=== PATIENT | male | born 2000 | race Caucasian/White ===

== ENCOUNTER 2019-02-09 16:03 | Emergency (ER) | payer OTHER ==
[2019-02-09 16:21] VITALS: BP 117/72
--- NOTE | 2019-02-09 17:21 | UC ---
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 - History Of Current Complaint Chief Complaint: UCLaceration Stated Complaint: finger LACERATION Time Seen by Provider: 02/09/19 17:04 Hx Obtained From: Patient Laceration Location: Finger - LEFT 4TH Mechanism Of Injury: Sharp Trauma Onset/Duration: Sudden Onset, Lasting Minutes, Still Present Severity: Moderate Pain Intensity: 5 Pain Scale Used: 0-10 Numeric Aggravating Factors: Movement Related History: Dominant Hand Right - Allergies/Home Medications Allergies/Adverse Reactions: Allergies Allergy/AdvReac Type Severity Reaction Status Date / Time No Known Allergies Allergy Verified 02/09/19 16:21 PMH/Surg Hx/FS Hx/Imm Hx Respiratory History: Asthma - Surgical History Surgical History: Yes Surgery Procedure, Year, and Place: MOLES REMOVED, ENDOSCOPY, COLONOSCOPY - Family History Known Family History: Positive: Cardiac Disease, Hypertension, Diabetes - Type I - brother - Social History Alcohol Use: None Substance Use Type: None Smoking Status (MU): Never Smoked Tobacco - Immunization History Most Recent Tetanus Shot: UNKNOWN Vaccination Up to Date: Yes Review of Systems All Other Systems Reviewed And Are Negative: Yes Constitutional: Positive: Negative Skin: Positive: Other - LACERATION Respiratory: Positive: Negative Cardiovascular: Positive: Negative Gastrointestinal: Positive: Negative Musculoskeletal: Positive: Negative Physical Exam Triage Information Reviewed: Yes Appearance: Well-Appearing, No Pain Distress, Well-Nourished Vital Signs: Initial Vital Signs Temp 97.4 F 02/09/19 16:17 Pulse 54 02/09/19 16:17 Resp 16 02/09/19 16:17 BP 117/72 02/09/19 16:17 Pulse Ox 98 02/09/19 16:17 Vital Signs Reviewed: Yes Eyes: Positive: Conjunctiva Clear ENT: Positive: Hearing grossly normal Neck: Positive: Supple Respiratory: Positive: No respiratory distress, No accessory muscle use Cardiovascular: Positive: Pulses Normal Abdomen Description: Positive: Soft Musculoskeletal: Positive: ROM Intact, No Edema Neurological: Positive: Alert Psychological: Positive: Age Appropriate Behavior Skin: Positive: Other - 1.5CM FLAP LACERATION VOLAR SURFACE LEFT 4TH FINGER OVERLYING DIP JOINT. Negative: Rashes Laceration Repair - Laceration Repair 1 Description: Irregular - FLAP Laceration Size After Repair: Length (cm) - 1.5CM, Width (mm) - 0MM, Depth (mm) - 3MM Modified For Repair: No Type Injection: Local Anesthesia Used: 1.0% Lido Irrigation With Pressure Irrigation Device: Yes Closure Material: Sutures - 4 SIMPLE INTERRUPTED Closure Method: Single Layer Suture Of: Skin Suture Type: Prolene - 5-0 Diagnostics - Radiology LEFT 4TH FINGER XRAYS Radiology Interpretation Completed By: Radiologist Summary of Radiographic Findings: No fracture is identified. Laceration Course/Dx - Course/Dx Course Of Treatment: X-RAYS SHOW NO BONY INJURY. LACERATION CLOSED WITH 4 SIMPLE INTERRUPTED SUTURES. PATIENT UP-TO-DATE TDAP. WILL RETURN FOR SUTURE REMOVAL IN 10 DAYS. - Diagnosis Provider Diagnosis: Laceration of left ring finger Discharge - Sign-Out/Discharge Documenting (check all that apply): Patient Departure All imaging exams completed and their final reports reviewed: Yes - Discharge Plan Condition: Stable Disposition: HOME Patient Education Materials: Finger Laceration (ED) Referrals: Rosa Maria Mcbride MD [Primary Care Provider] - If Needed Additional Instructions: KEEP DRESSINGS IN PLACE AND DRY FOR THE FIRST 24 HRS. THEN YOU MAY REMOVE THE DRESSING AND GENTLY CLEANSE WITH SOAP AND WATER. PAT DRY AND RE-BANDAGE. APPLY THIN LAYER ANTIBIOTIC OINTMENT UNDER BANDAGE FOR FIRST 3-4 DAYS ONLY. AVOID NEOMYCIN CONTAINING PRODUCTS. CHANGE BANDAGE DAILY AND NEEDED IF IT BECOMES SOILED OR WET. SEEK FOLLOW-UP IF YOU DEVELOP SPREADING REDNESS OF THE SKIN, PURULENT DRAINAGE, FEVER, INCREASED PAIN OR ANY OTHER CONCERNING SYMPTOMS. RETURN TO HAVE YOUR 4 SUTURES REMOVED IN 10 DAYS - Billing Disposition and Condition Condition: STABLE Disposition: Home
[2019-02-09] MEDS ORDERED: Lidocaine 1%* 5 ML VIAL INJ ONE (17:28)
== END 2019-02-09 18:25 | disposition home or self-care (01) ==
LOC: UCEAST 16:03
DX: S61.215A Laceration without foreign body of left ring finger without damage to nail, initial encounter (principal); W26.0XXA Contact with knife, initial encounter; Y93.G9 Activity, other involving cooking and grilling; Y92.89 Other specified places as the place of occurrence of the external cause; Y99.0 Civilian activity done for income or pay
CPT/HCPCS: 12001; 73140; 99211; G0463